=== PATIENT | female | born 1965 | race Caucasian/White ===

== ENCOUNTER 2017-08-08 17:54 | Emergency (ER) | payer OTHER ==
[~2017-08-08] VITALS: Ht 157.5 cm; Wt 54.0 kg
[2017-08-08 17:58] VITALS: BP 177/105; PULSE 83; RESP 14; TEMP 98.4; O2SAT 98
[2017-08-08 18:40] VITALS: BP 148/94; PULSE 70; RESP 16; O2SAT 99
[2017-08-08] MEDS ORDERED: WATERPILL (18:47)
[2017-08-08] MEDS ORDERED: HUMI40KI SQ (18:47)
[2017-08-08] MEDS ORDERED: OMEP20TA93 PO (18:47)
[2017-08-08] MEDS ORDERED: METO25TA3 PO (18:47)
--- NOTE | 2017-08-08 18:52 | PD ---
HPI Chief Complaint: Hypertension Time Seen by Provider: 18:42 Travel History International Travel<30 days: No Contact w/Intl Traveler<30days: No Traveled to known affect area: No History of Present Illness HPI 52-year-old female with history of rheumatoid arthritis, hypertension, here for evaluation of elevated blood pressure. The patient lives in [place] and is here to watch a volleyball tournament. She is on Humira as well as metoprolol. She was started on hydrochlorothiazide 3 days ago for elevated blood pressure. She reports episodes of lightheadedness over the last couple days, and when she checks her blood pressure is elevated as high as 150 systolic. States that today she had palpitations in her chest and had tingling sensation in her bilateral hands. This started after realizing her blood pressure was slightly elevated. Currently she is asymptomatic. She denies having chest pain. No dyspnea. Currently no paresthesias or motor deficits. PFSH Past Medical History ?: Not Social History Alcohol Use: Yes Tobacco Use: No Substance Use: No Allergies-Medications (Allergen,Severity, Reaction): Coded Allergies: No Known Allergies (Unverified , 08/08/17) Reported Meds & Prescriptions Reported Meds & Active Scripts Active Reported [waterpill ] Omeprazole 20 Mg Tab 20 Mg PO DAILY Metoprolol Tartrate 25 Mg Tab 25 Mg PO BID Humira 2-Pack Inj (Adalimumab 2-Pack Inj) 40 Mg/0.8 Ml Syr 40 Mg SQ Q14D Review of Systems Except as stated in HPI: all other systems reviewed are Neg Physical Exam Narrative GENERAL: Well-developed, well-nourished, comfortable, no apparent distress. SKIN: Focused skin assessment warm/dry. HEAD: Atraumatic. Normocephalic. EYES: Pupils equal and round. No scleral icterus. No injection or drainage. ENT: Mucous membranes pink and moist. NECK: Trachea midline. No JVD. CARDIOVASCULAR: Regular rate and rhythm. Distal pulses brisk and equal bilaterally. RESPIRATORY: No accessory muscle use. Clear to auscultation. Breath sounds equal bilaterally. GASTROINTESTINAL: Abdomen soft, non-tender, nondistended. MUSCULOSKELETAL: No obvious deformities. No clubbing. No cyanosis. No edema. NEUROLOGICAL: Awake and alert. No obvious cranial nerve deficits. Motor grossly within normal limits. Normal speech. PSYCHIATRIC: Appropriate mood and affect; insight and judgment normal. Data Data Last Documented VS Vital Signs Date Time Temp Pulse Resp B/P (MAP) Pulse Ox O2 Delivery O2 Flow Rate FiO2 08/08/17 19:38 83 18 181/99 (126) 100 Room Air 08/08/17 17:58 98.4 Orders Orders Complete Blood Count With Diff (08/08/17 18:49) Comprehensive Metabolic Panel (08/08/17 18:49) Urinalysis - C+S If Indicated (08/08/17 18:49) Iv Access Insert/Monitor (08/08/17 18:49) Ecg Monitoring (08/08/17 18:49) Oximetry (08/08/17 18:49) Sodium Chloride 0.9% Flush (Ns Flush) (08/08/17 19:00) Electrocardiogram (08/08/17 18:49) Potassium Chloride (Kcl) (08/08/17 19:30) Labs Laboratory Tests Test 08/08/17 18:50 White Blood Count 10.6 TH/MM3 Red Blood Count 4.13 MIL/MM3 Hemoglobin 14.1 GM/DL Hematocrit 40.6 % Mean Corpuscular Volume 98.4 FL Mean Corpuscular Hemoglobin 34.1 PG Mean Corpuscular Hemoglobin Concent 34.7 % Red Cell Distribution Width 13.6 % Platelet Count 265 TH/MM3 Mean Platelet Volume 7.6 FL Neutrophils (%) (Auto) 57.1 % Lymphocytes (%) (Auto) 28.6 % Monocytes (%) (Auto) 11.4 % Eosinophils (%) (Auto) 2.1 % Basophils (%) (Auto) 0.8 % Neutrophils # (Auto) 6.1 TH/MM3 Lymphocytes # (Auto) 3.0 TH/MM3 Monocytes # (Auto) 1.2 TH/MM3 Eosinophils # (Auto) 0.2 TH/MM3 Basophils # (Auto) 0.1 TH/MM3 CBC Comment DIFF FINAL Differential Comment Urine Color YELLOW Urine Turbidity CLEAR Urine pH 6.0 Urine Specific [place] 1.010 Urine Protein NEG mg/dL Urine Glucose (UA) NEG mg/dL Urine Ketones 40 mg/dL Urine Occult Blood SMALL Urine Nitrite NEG Urine Bilirubin NEG Urine Urobilinogen LESS THAN 2.0 MG/DL Urine Leukocyte Esterase NEG Urine RBC 2 /hpf Urine WBC LESS THAN 1 /hpf Urine Mucus FEW /lpf Microscopic Urinalysis Comment CULT NOT INDICATED Blood Urea Nitrogen 13 MG/DL Creatinine 0.75 MG/DL Random Glucose 85 MG/DL Total Protein 8.1 GM/DL Albumin 4.4 GM/DL Calcium Level 9.1 MG/DL Alkaline Phosphatase 94 U/L Aspartate Amino Transf (AST/SGOT) 18 U/L Alanine Aminotransferase (ALT/SGPT) 20 U/L Total Bilirubin 0.5 MG/DL Sodium Level 131 MEQ/L Potassium Level 3.2 MEQ/L Chloride Level 94 MEQ/L Carbon Dioxide Level 27.0 MEQ/L Anion Gap 10 MEQ/L Estimat Glomerular Filtration Rate 82 ML/MIN MDM Medical Decision Making Medical Screen Exam Complete: Yes Emergency Medical Condition: Yes Interpretation(s) EKG: Sinus, rate 76, normal axis, normal intervals, no acute ischemic abnormality. Differential Diagnosis Uncontrolled hypertension, hypertensive crisis, metabolic abnormality Narrative Course Initial vital signs show heart rate 83, blood pressure 177/105, pulse ox 98% on room air, oral temp of 98.4F. Repeat blood pressure without any intervention is 148/94. CBC is unremarkable. CMP is remarkable for sodium 131, potassium 3.2, chloride 94. Potassium was replaced orally. Hypokalemia is likely secondary to hydrochlorothiazide. UA shows small occult blood which the patient reports she is seeing a urologist for for interstitial cystitis. EKG shows no signs of ischemia. The patient is displaying any signs or symptoms of hypertensive crisis. She was made aware of all findings and is feeling improved. She is stable for discharge home with outpatient follow-up with a primary care physician this week. She was informed on when to return to the emergency department. She verbalizes understanding and agreement with plan. Diagnosis Primary Impression: Uncontrolled hypertension Referrals: Primary Care Physician 3 days Additional Instructions: Follow-up with a primary care physician this week. Return to the emergency department for worsening symptoms or any other concerns. Disposition: 01 DISCHARGE HOME Condition: Stable Chance Mcginnis MD Aug 08, 2017 18:52
[2017-08-08] MEDS ORDERED: SODIUM CHLORIDE 0.9% FLUSH 10 ML FLUSH IV FLUSH PRN (19:00)
[2017-08-08 19:09] LABS: AUTOMATED NEUTROPHIL # 6.1 TH/MM3 (1.8-7.7); BASOPHIL # 0.1 TH/MM3 (0-0.2); BASOPHIL % 0.8 % (0.0-2.0); EOSINOPHIL # 0.2 TH/MM3 (0-0.4); EOSINOPHIL % 2.1 % (0.0-4.0); HEMATOCRIT 40.6 % (35.0-46.0); HEMO FLAGS DIFF FINAL; LYMPH % 28.6 % (9.0-44.0); MEAN CELL VOLUME 98.4 FL (80.0-100.0); MEAN CORPUSCULAR HEMOGLOBIN 34.1 PG (27.0-34.0); MEAN CORPUSCULAR HGB CONC 34.7 % (32.0-36.0); MONO % 11.4 % (0.0-8.0); NEUT % 57.1 % (16.0-70.0); PLATELET COUNT 265 TH/MM3 (150-450); RED BLOOD COUNT 4.13 MIL/MM3 (4.00-5.30); RED CELL DISTRIBUTION WIDTH 13.6 % (11.6-17.2); WHITE BLOOD COUNT 10.6 TH/MM3 (4.0-11.0)
[2017-08-08 19:10] LABS: BLOOD, URINE SMALL (NEG); COMMENT (UR) CULT NOT INDICATED; CULTURE IF INDICATED CULT NOT INDICATED; GLUCOSE,URINE NEG (NEG); KETONE, URINE 40 mg/dL (NEG); MUCUS URINE FEW /lpf (OCC); NITRITE,URINE NEG (NEG); URINE COLOR YELLOW (YELLW/STRAW)
[2017-08-08 19:16] LABS: AST (GOT) 18 U/L (15-37); BLOOD UREA NITROGEN 13 MG/DL (7-18); GLOMERULAR FILTRATION RATE 82 ML/MIN (>89); SODIUM (NA) 131 MEQ/L (136-145)
[2017-08-08 19:17] LABS: ANION GAP 10 MEQ/L (5-15); CHLORIDE 94 MEQ/L (98-107); POTASSIUM 3.2 MEQ/L (3.5-5.1)
[2017-08-08 19:18] LABS: ALT (GPT) 20 U/L (10-53)
[2017-08-08 19:21] LABS: ALKALINE PHOSPHATASE 94 U/L (45-117); TOTAL BILIRUBIN ADULT 0.5 MG/DL (0.2-1.0)
[2017-08-08 19:25] VITALS: O2SAT 97
[2017-08-08] MEDS ORDERED: POTASSIUM CHLORIDE 20 MEQ CONTROLLED RELEASE TAB PO ONE (19:30)
[2017-08-08 19:38] VITALS: BP 181/99; PULSE 83; RESP 18; O2SAT 100
--- NOTE | 2017-08-09 12:33 | EKG ---
Date Performed: 08/08/2017 Time Performed: 19:25:23 PTAGE: 52 years EKG: Sinus rhythm WITH SINUS ARRHYTHMIA NORMAL ECG NO PREVIOUS TRACING DOCTOR: Umesh De La Rosa Interpretating Date/Time 08/09/2017 12:32:00
== END 2017-08-08 20:09 | disposition home or self-care (01) ==
LOC: NEPD 17:54
DX: I10 Essential (primary) hypertension (principal); M06.9 Rheumatoid arthritis, unspecified; R00.2 Palpitations
CPT/HCPCS: 80053; 81001; 85025; 93005; 99285